=== PATIENT | male | born 1970 | race Hispanic/Latino ===

== ENCOUNTER 2018-02-28 14:08 | Emergency (ER) | payer OTHER, SELFPAY ==
[2018-02-28] MEDS ORDERED: Proparacaine 0.5% Opth 15 ML BOT ONE (14:21)
[2018-02-28] MEDS ORDERED: Fluorescein Opthalmic Strip ONE (14:21)
== END 2018-02-28 14:45 | disposition home or self-care (01) ==
LOC: ERS 14:08
DX: H10.9 Unspecified conjunctivitis (principal); F17.210 Nicotine dependence, cigarettes, uncomplicated; Z79.84 Long term (current) use of oral hypoglycemic drugs; Z79.899 Other long term (current) drug therapy
CPT/HCPCS: 99283

== ENCOUNTER 2022-09-30 21:36 | Emergency (ER) | payer OTHER, SELFPAY ==
[2022-09-30] MEDS ORDERED: Ibuprofen 200 MG TAB ONE (23:48)
== END 2022-10-01 00:05 | disposition home or self-care (01) ==
LOC: ERS 21:36
DX: S20.211A Contusion of right front wall of thorax, initial encounter (principal); W01.0XXA Fall on same level from slipping, tripping and stumbling without subsequent striking against object, initial encounter
CPT/HCPCS: 71045